=== PATIENT | male | born 1990 | race Hispanic/Latino ===

== ENCOUNTER 2017-06-30 06:44 | Inpatient (IN) | payer OTHER, SELFPAY ==
[2017-06-30] MEDS ORDERED: Fentanyl 100 MCG/2 ML VIAL ONE ×3 (06:54→09:54)
[2017-06-30 07:04] LABS: #Basophils 0.1 thou/uL (0.0-0.2); #Eosinphils 0.3 thou/uL (0.0-0.7); #Lymphocytes 4.2 thou/uL (1.20-3.40); #Monocytes 0.5 thou/uL (0.11-0.59); #Neutrophils 4.1 thou/uL (1.40-6.50); %Basophils 1.3 % (0.0-1.0); %Eosinophils 3.4 % (0.0-10.0); %Lymphocytes 45.5 % (21.0-51.0); %Monocytes 5.7 % (0.0-10.0); Hematocrit 46.9 % (42.0-52.0); Mean Platelet Volume 8.4 fL (7.4-10.4); Red Blood Cell (RBC) Count 5.11 mill/uL (4.70-6.10); White Blood Cell (WBC) Count 9.2 thou/uL (4.8-10.8)
[2017-06-30 07:12] LABS: Lactic Acid - Sepsis 6.1 mmol/L (0.5-2.2)
[2017-06-30 07:15] LABS: ALT (SGPT) 52 U/L (8-55); AST (SGOT) 64 U/L (5-34); Alkaline Phosphatase 57 U/L (40-150); Anion Gap 16 mmol/L (10-20); BUN (Urea Nitrogen) 9 mg/dL (8.9-20.6); Bilirubin, Total 0.4 mg/dL (0.2-1.2); Calc. Creatinine Clearance 0 mL/min (70-130); Calcium 8.2 mg/dL (7.8-10.44); Carbon Dioxide 20 mmol/L (22-29); Chloride 104 mmol/L (98-107); Estimated GFR-MDRD 75; Globulin 3.1 g/dL (2.4-3.5); Protein, Total 6.6 g/dL (6.0-8.3)
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
[2017-06-30] MEDS ORDERED: Ketorolac Tromethamine 30 MG/ML VIAL ONE (08:02)
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
[2017-06-30] MEDS ORDERED: Dextrose 5% in Water 1,000 ML IV PRN (08:28)
[2017-06-30] MEDS ORDERED: Zolpidem Tartrate 5 MG TAB PO PRN (08:28)
[2017-06-30] MEDS ORDERED: diphenhydrAMINE 50 MG/ML VIAL IM PRN (08:28)
[2017-06-30] MEDS ORDERED: diphenhydrAMINE 50 MG/ML VIAL IVP PRN (08:28)
[2017-06-30] MEDS ORDERED: Promethazine HCl 25 MG/ML VIAL IM PRN (08:28)
[2017-06-30] MEDS ORDERED: Ondansetron HCl/PF 4 MG/2 ML Vial IVP PRN (08:28)
[2017-06-30] MEDS ORDERED: Naloxone HCl 0.4 mg/ml Vial IV PRN (08:28)
[2017-06-30] MEDS ORDERED: HYDROmorphone 10 mg/100 ml CADD IVPB PRN (08:28)
[2017-06-30] MEDS ORDERED: Dextrose 50% Abboject 50 ML SYRINGE SLOW IVP PRN (08:28)
[2017-06-30] MEDS ORDERED: diphenhydrAMINE 25 MG CAP PO PRN (08:28)
[2017-06-30] MEDS ORDERED: Communication Order-Pharmacy FS SCH (08:30)
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
[2017-06-30 08:39] VITALS: BMI 45.7
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
[2017-06-30] MEDS: Sodium Chloride 0.9% 1,000 ML IV SCH ×2 (09:02→16:06)
[2017-06-30] MEDS: Famotidine/PF 20 mg/2ml Vial SLOW IVP SCH ×2 (09:02→20:31)
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
[2017-06-30 09:17] LABS: Hematocrit 44.1 % (42.0-52.0)
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
[2017-06-30] MEDS: Ketorolac Tromethamine 30 MG/ML VIAL IVP SCH ×2 (12:50→17:32)
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
[2017-06-30 14:26] LABS: Hematocrit 40.3 % (42.0-52.0)
[2017-06-30] MEDS ORDERED: ISOVUE-370 76%-LOCM 1 ML ONE (15:01)
[2017-06-30] MEDS ORDERED: Iopamidol 370 76% 50 ML VIAL FS ONE (15:26)
[2017-06-30 18:23] LABS: Bilirubin Moderate (Negative); Blood, Urine Large (Negative); Glucose, Urine (Dipstick) 100 mg/dL (Negative); Ketone, Urine Trace mg/dL (Negative); Nitrite Negative (Negative); Protein, Urine (Dipstick) 100 mg/dL (Neg-Trace)
[2017-06-30 18:26] LABS: Bacteria/HPF None Seen HPF (None Seen); RBC/HPF GREATER THAN 50-TNTC HPF (0-3); Squamous Epithelial 0-3 HPF (0-3)
[2017-06-30 18:49] LABS: Hyaline Casts/LPF NONE SEEN LPF (0-3 Hyaline)
[2017-06-30 18:50] LABS: Renal Epithelial None Seen HPF (0-3); Transitional Epithelial NONE SEEN HPF (0-3)
[2017-06-30 20:38] LABS: Hematocrit 36.3 % (42.0-52.0)
[2017-06-30] MEDS ORDERED: FLU VACC QS2017-18 36 mo. & older 0.5 ML SYRINGE IM ONE (21:00)
[2017-07-01] MEDS: Ketorolac Tromethamine 30 MG/ML VIAL IVP SCH ×2 (00:15→06:08)
[2017-07-01] MEDS: Insulin Regular 300 UNITS/3 ML VIAL SC PRN ×2 (01:36→06:10)
[2017-07-01 04:24] LABS: #Eosinphils 0.1 thou/uL (0.0-0.7); #Lymphocytes 1.7 thou/uL (1.20-3.40); #Monocytes 1.5 thou/uL (0.11-0.59); #Neutrophils 12.4 thou/uL (1.40-6.50); %Eosinophils 0.5 % (0.0-10.0); %Lymphocytes 10.8 % (21.0-51.0); %Monocytes 9.6 % (0.0-10.0); Hematocrit 32.8 % (42.0-52.0); Mean Platelet Volume 8.1 fL (7.4-10.4); Red Blood Cell (RBC) Count 3.69 mill/uL (4.70-6.10); White Blood Cell (WBC) Count 15.7 thou/uL (4.8-10.8)
[2017-07-01 04:29] LABS: Anion Gap 11 mmol/L (10-20); BUN (Urea Nitrogen) 20 mg/dL (8.9-20.6); Calc. Creatinine Clearance 171 mL/min (70-130); Calcium 8.1 mg/dL (7.8-10.44); Carbon Dioxide 22 mmol/L (22-29); Chloride 109 mmol/L (98-107); Estimated GFR-MDRD 67
[2017-07-01] MEDS: Sodium Chloride 0.9% 1,000 ML IV SCH ×4 (05:36→23:58)
[2017-07-01] MEDS ORDERED: HYDROcodone/Acetaminophen 7.5/325 mg Tablet PO PRN (09:03)
--- NOTE | 2017-07-01 09:05 | RAD ---
CHEST ONE VIEW: History: Pneumothorax. Chest tube. Follow up. Comparison: 07-01-17 FINDINGS: Cardiac silhouette is magnified by projection. Pulmonary vasculature remains upper limits of normal. Mediastinum is midline. Left thoracostomy tube is unchanged in position. Small left pneumothorax an d left chest wall gas are similar in appearance to the previous exam. survey research manager leads overlie the chest. IMPRESSION: Stable post-traumatic appearance of the chest. POS: [facility]
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
[2017-07-01] MEDS ORDERED: Acetaminophen 500 MG TAB PO PRN (09:08)
[2017-07-01] MEDS ORDERED: Cyclobenzaprine 10 MG TAB PO PRN (09:15)
[2017-07-01] MEDS ORDERED: Rib Fracture Protocol PO PRN (09:15)
[2017-07-01] MEDS: HYDROcodone/Acetaminophen 7.5/325 mg Tablet PO PRN ×2 (09:30→14:45)
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
[2017-07-01] MEDS: traMADol HCl 50 MG TAB PO SCH ×3 (13:10→23:52)
[2017-07-01] MEDS: Ibuprofen 800 MG TAB PO SCH ×3 (13:11→23:53)
[2017-07-01] MEDS: Gabapentin 300 MG CAP PO SCH ×2 (14:46→20:59)
[2017-07-01 15:17] LABS: Hematocrit 30.8 % (42.0-52.0)
[2017-07-01] MEDS: Famotidine 20 MG TAB PO SCH (20:58)
[2017-07-01 21:00] LABS: Hematocrit 27.9 % (42.0-52.0)
[2017-07-02 05:14] LABS: #Eosinphils 0.2 thou/uL (0.0-0.7); #Lymphocytes 1.1 thou/uL (1.20-3.40); #Monocytes 1.3 thou/uL (0.11-0.59); #Neutrophils 13.8 thou/uL (1.40-6.50); %Eosinophils 1.4 % (0.0-10.0); %Lymphocytes 6.8 % (21.0-51.0); %Monocytes 7.7 % (0.0-10.0); Hematocrit 27.2 % (42.0-52.0); Mean Platelet Volume 8.9 fL (7.4-10.4); Red Blood Cell (RBC) Count 3.03 mill/uL (4.70-6.10); White Blood Cell (WBC) Count 16.4 thou/uL (4.8-10.8)
[2017-07-02 05:22] LABS: Anion Gap 7 mmol/L (10-20); BUN (Urea Nitrogen) 9 mg/dL (8.9-20.6); Calc. Creatinine Clearance 287 mL/min (70-130); Calcium 8.4 mg/dL (7.8-10.44); Carbon Dioxide 26 mmol/L (22-29); Chloride 105 mmol/L (98-107); Estimated GFR-MDRD Greater than 90; Magnesium 1.8 mg/dL (1.6-2.6); Phosphorus 2.2 mg/dL (2.3-4.7)
[2017-07-02] MEDS: Ibuprofen 800 MG TAB PO SCH ×4 (06:03→23:34)
[2017-07-02] MEDS: traMADol HCl 50 MG TAB PO SCH ×4 (06:03→23:34)
[2017-07-02] MEDS: Famotidine 20 MG TAB PO SCH ×2 (07:54→20:52)
[2017-07-02] MEDS: Gabapentin 300 MG CAP PO SCH ×3 (07:54→20:52)
[2017-07-02] MEDS ORDERED: Sodium Phosphate 20 MMOL, Magnesium Sulfate 4 GM in Sodium Chloride 0.9% 250 ML 250 ML IVPB SCH (08:15)
--- NOTE | 2017-07-02 10:02 | RAD ---
PORTABLE AP CHEST: Date: 07-02-17 History: Left sided pneumothorax with thoracostomy tube in place. Comparison: 07-01-17 FINDINGS: Left sided thoracotomy tube is again noted in place. However, the most proximal sidehole of the thor acotomy tube does overlie the subcutaneous soft tissues lateral left chest. There is a small left si ded pneumothorax again seen which is overall unchanged. Subcutaneous emphysema about the left chest is also again present. There is atelectasis at the right lung base. Cardiac silhouette and bronchova scular markings are accentuated by the shallow depth of inspiration. There is asymmetric increased p arenchymal opacity in the left lung compared to the right which may be related to pulmonary contusio ns, aspiration, or developing pneumonia. Multiple left sided rib fractures are again seen. Right elaine g remains clear aside from mild volume loss at the right lung base. No other interval change. IMPRESSION: 1. Left sided thoracostomy tube remains in place, but the most proximal sidehole overlies the subcut aneous soft tissues. There is a persistent small left sided pneumothorax, unchanged in size compared to the prior exam. 2. Interval increase in parenchymal opacities throughout the left lung which may be related to areas of pulmonary contusion and associated atelectasis. Developing pneumonia or aspiration is a possibil ity. 3. Multiple left sided rib fractures with subcutaneous emphysema. POS: [facility]
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
[2017-07-02] MEDS: HYDROcodone/Acetaminophen 7.5/325 mg Tablet PO PRN (16:10)
[2017-07-02] MEDS: Senokot S 8.6-50 MG TAB PO SCH (20:52)
[2017-07-02] MEDS: Bacitracin Zinc Ointment 30 gm TUBE TOP SCH (20:53)
[2017-07-03] MEDS: Ibuprofen 800 MG TAB PO SCH ×4 (05:46→23:54)
[2017-07-03] MEDS: traMADol HCl 50 MG TAB PO SCH ×4 (05:47→23:54)
[2017-07-03 06:40] LABS: #Eosinphils 0.2 thou/uL (0.0-0.7); #Lymphocytes 0.8 thou/uL (1.20-3.40); #Monocytes 1.3 thou/uL (0.11-0.59); %Basophils 0.2 % (0.0-1.0); %Eosinophils 1.4 % (0.0-10.0); %Lymphocytes 4.8 % (21.0-51.0); %Monocytes 7.8 % (0.0-10.0); Hematocrit 27.1 % (42.0-52.0); Mean Platelet Volume 8.8 fL (7.4-10.4); Red Blood Cell (RBC) Count 2.93 mill/uL (4.70-6.10); White Blood Cell (WBC) Count 16.3 thou/uL (4.8-10.8)
[2017-07-03 06:54] LABS: Anion Gap 8 mmol/L (10-20); BUN (Urea Nitrogen) 7 mg/dL (8.9-20.6); Calc. Creatinine Clearance 326 mL/min (70-130); Calcium 8.5 mg/dL (7.8-10.44); Carbon Dioxide 29 mmol/L (22-29); Chloride 101 mmol/L (98-107); Estimated GFR-MDRD Greater than 90; Magnesium 2.2 mg/dL (1.6-2.6); Phosphorus 3.1 mg/dL (2.3-4.7)
[2017-07-03] MEDS: Gabapentin 300 MG CAP PO SCH ×3 (09:02→20:09)
[2017-07-03] MEDS: Senokot S 8.6-50 MG TAB PO SCH ×2 (09:02→20:09)
[2017-07-03] MEDS: Polyethylene Glycol 3350 17 GM Packet PO SCH (09:02)
[2017-07-03] MEDS: Bacitracin Zinc Ointment 30 gm TUBE TOP SCH ×2 (09:02→20:14)
[2017-07-04] MEDS: traMADol HCl 50 MG TAB PO SCH ×4 (05:53→23:50)
[2017-07-04] MEDS: Ibuprofen 800 MG TAB PO SCH ×4 (05:53→23:50)
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
--- NOTE | 2017-07-04 08:41 | RAD ---
1 VIEW CHEST: Date: 07/04/17 COMPARISON: 07/02/17. HISTORY: Chest tube. Pneumothorax. COMPARISON: 07/02/17. FINDINGS: Left-sided chest tube is redemonstrated. The side hole is external to the pleural cavity. Advancemen t and repositioning is recommended. Stable subcutaneous emphysema left hemithorax. A small left apic al pneumothorax is suggested. Stable opacification of the lung parenchyma. IMPRESSION: Left-sided chest tube as above. Repositioning and advancement recommended. CODE T. POS: [facility]
[2017-07-04] MEDS ORDERED: Magnesium Citrate 300 ML BOT PO SCH (09:45)
[2017-07-04] MEDS: Gabapentin 300 MG CAP PO SCH ×3 (10:36→20:27)
[2017-07-04] MEDS: Senokot S 8.6-50 MG TAB PO SCH ×2 (10:37→20:27)
[2017-07-04] MEDS: Polyethylene Glycol 3350 17 GM Packet PO SCH (10:37)
[2017-07-04] MEDS: Bacitracin Zinc Ointment 30 gm TUBE TOP SCH ×2 (10:37→20:28)
[2017-07-04] MEDS ORDERED: Bisacodyl 10 MG SUPP PR SCH (13:45)
[2017-07-04] MEDS: Famotidine/PF 20 mg/2ml Vial SLOW IVP SCH (15:41)
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
[2017-07-05] MEDS: traMADol HCl 50 MG TAB PO SCH ×3 (06:04→17:26)
[2017-07-05] MEDS: Ibuprofen 800 MG TAB PO SCH ×3 (06:05→17:26)
[2017-07-05] MEDS: Senokot S 8.6-50 MG TAB PO SCH ×2 (08:36→20:37)
[2017-07-05] MEDS: Gabapentin 300 MG CAP PO SCH ×3 (08:36→20:37)
[2017-07-05] MEDS: Polyethylene Glycol 3350 17 GM Packet PO SCH (08:36)
[2017-07-05] MEDS: HYDROcodone/Acetaminophen 7.5/325 mg Tablet PO PRN (08:37)
[2017-07-05] MEDS: Bacitracin Zinc Ointment 30 gm TUBE TOP SCH ×2 (08:39→21:17)
--- NOTE | 2017-07-05 08:39 | RAD ---
CHEST 1 VIEW: Date: 07/05/17 COMPARISON: 07/04/17. HISTORY: Chest tube. FINDINGS: Left-sided chest tube, unchanged in position. Persistent subcutaneous emphysema. Left rib fractures are present. Pneumothorax is not definitively appreciated. IMPRESSION: No significant change. POS: [facility]
[2017-07-05] MEDS ORDERED: Magnesium Citrate 300 ML BOT PO SCH (09:00)
--- NOTE | 2017-07-05 14:41 | RAD ---
1 VIEW CHEST: Date: 07/05/17 COMPARISON: 07/05/17. HISTORY: Chest tube removal. FINDINGS: Stable left thoracic subcutaneous emphysema. Interval removal of chest tube. Pneumothorax is not micheal reciated. Lung volumes are diminished, unchanged when compared to the prior exam. Stable left rib fr actures. IMPRESSION: Interval removal of left-sided chest tube. No pneumothorax. POS: [facility]
[2017-07-06] MEDS: Ibuprofen 800 MG TAB PO SCH ×5 (00:30→23:36)
[2017-07-06] MEDS: traMADol HCl 50 MG TAB PO SCH ×2 (00:31→06:14)
[2017-07-06] MEDS ORDERED: HYDROcodone/Acetaminophen 7.5/325 mg Tablet PO PRN (08:19)
[2017-07-06] MEDS: Senokot S 8.6-50 MG TAB PO SCH ×2 (08:48→22:06)
[2017-07-06] MEDS: Polyethylene Glycol 3350 17 GM Packet PO SCH (08:48)
[2017-07-06] MEDS: HYDROcodone/Acetaminophen 7.5/325 mg Tablet PO SCH ×4 (08:48→22:05)
[2017-07-06] MEDS: Gabapentin 300 MG CAP PO SCH ×3 (08:48→22:05)
[2017-07-06] MEDS: Enoxaparin Sodium 40 MG/0.4 ML SYRINGE SC SCH (08:49)
[2017-07-06] MEDS: Bacitracin Zinc Ointment 30 gm TUBE TOP SCH ×2 (08:49→22:05)
--- NOTE | 2017-07-06 08:53 | RAD ---
1 VIEW CHEST: Date: 07/06/17 HISTORY: Chest tube removal. Follow-up exam. COMPARISON: 07/05/17 at 1335 hours. FINDINGS: Stable subcutaneous emphysema left hemithorax. Stable opacification of the left upper lobe/left supr ahilar region, as well as stable opacification of the right lung base. Pneumothorax is not appreciat ed. IMPRESSION: No change. POS: [facility]
[2017-07-06] MEDS ORDERED: Magnesium Citrate 300 ML BOT PO SCH (18:00)
[2017-07-07] MEDS: HYDROcodone/Acetaminophen 7.5/325 mg Tablet PO SCH ×6 (01:33→20:15)
[2017-07-07] MEDS: Ibuprofen 800 MG TAB PO SCH ×3 (06:43→18:20)
[2017-07-07] MEDS: Polyethylene Glycol 3350 17 GM Packet PO SCH (07:55)
[2017-07-07] MEDS: Senokot S 8.6-50 MG TAB PO SCH ×2 (07:56→20:16)
[2017-07-07] MEDS: Gabapentin 300 MG CAP PO SCH ×3 (07:56→20:15)
[2017-07-07] MEDS: Enoxaparin Sodium 40 MG/0.4 ML SYRINGE SC SCH (07:57)
[2017-07-07] MEDS: Bacitracin Zinc Ointment 30 gm TUBE TOP SCH ×2 (07:58→20:16)
[2017-07-07] MEDS: Piperacillin/Tazobactam 4.5 GM, Admixture Fee 1 EACH in Sodium Chloride 0.9% 100 ML IVPB SCH ×3 (11:21→21:38)
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
[2017-07-08] MEDS: HYDROcodone/Acetaminophen 7.5/325 mg Tablet PO SCH ×3 (00:29→08:14)
[2017-07-08] MEDS: Ibuprofen 800 MG TAB PO SCH ×5 (00:29→23:35)
[2017-07-08] MEDS: Piperacillin/Tazobactam 4.5 GM, Admixture Fee 1 EACH in Sodium Chloride 0.9% 100 ML IVPB SCH (03:56)
[2017-07-08 06:05] LABS: Band 1 % (5-11); Hematocrit 30.4 % (42.0-52.0); Mean Platelet Volume 6.9 fL (7.4-10.4); Metamyelocyte 4 % (0-0); Myelocyte 6 % (0-0); Neutrophil 52 % (42-75); Red Blood Cell (RBC) Count 3.28 mill/uL (4.70-6.10); White Blood Cell (WBC) Count 15.2 thou/uL (4.8-10.8)
[2017-07-08] MEDS: Bacitracin Zinc Ointment 30 gm TUBE TOP SCH ×2 (08:07→20:33)
[2017-07-08] MEDS: Gabapentin 300 MG CAP PO SCH ×3 (08:07→20:33)
[2017-07-08] MEDS: Enoxaparin Sodium 40 MG/0.4 ML SYRINGE SC SCH (08:07)
[2017-07-08] MEDS: Senokot S 8.6-50 MG TAB PO SCH ×2 (08:09→20:33)
[2017-07-08] MEDS: Polyethylene Glycol 3350 17 GM Packet PO SCH (08:10)
[2017-07-08] MEDS ORDERED: Haemoph B Posysac Conj-Meng 0.5 ML VIAL IM ONE (08:30)
[2017-07-08] MEDS ORDERED: traMADol HCl 50 MG TAB PO PRN ×2 (08:57)
[2017-07-08] MEDS ORDERED: Clindamycin 150 MG CAP PO SCH (09:00)
--- NOTE | 2017-07-08 09:37 | RAD ---
CHEST ONE VIEW: History: Follow up opacification. Comparison: 07-06-17 FINDINGS: The subcutaneous emphysema along the left lateral hemithorax is similar to slightly worsening. There is a left lower lobe and lingular air space opacity, progressive. Multiple left sided rib fractures . There is a tiny left apical pneumothorax. IMPRESSION: 1. Worsening left lower lobe lingular opacities suggesting progression of evolving pulmonary contusi on. 2. Increase in subcutaneous emphysema. 3. Left anterior pneumothorax. POS: [facility]
[2017-07-08] MEDS: Saccharomyces boulardii 250 MG CAP PO SCH (09:55)
[2017-07-08] MEDS: Acetaminophen 500 MG TAB PO SCH ×3 (10:33→20:32)
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
[2017-07-08] MEDS: Clindamycin 150 MG CAP PO SCH ×2 (14:45→21:35)
[2017-07-09] MEDS: Acetaminophen 500 MG TAB PO SCH ×3 (02:57→15:09)
[2017-07-09] MEDS: Clindamycin 150 MG CAP PO SCH ×2 (05:27→14:19)
[2017-07-09] MEDS: Ibuprofen 800 MG TAB PO SCH ×2 (05:27→14:10)
[2017-07-09] MEDS: Saccharomyces boulardii 250 MG CAP PO SCH (09:30)
[2017-07-09] MEDS: Gabapentin 300 MG CAP PO SCH ×2 (09:31→14:10)
[2017-07-09] MEDS: Enoxaparin Sodium 40 MG/0.4 ML SYRINGE SC SCH (09:31)
[2017-07-09] MEDS: Senokot S 8.6-50 MG TAB PO SCH (09:31)
[2017-07-09] MEDS: Polyethylene Glycol 3350 17 GM Packet PO SCH (09:32)
[2017-07-09] MEDS: Bacitracin Zinc Ointment 30 gm TUBE TOP SCH (09:33)
[2017-07-09] MEDS ORDERED: Prevnar 13-Val Conj/PF 0.5 ML SYRINGE IM ONE (11:00)
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
[2017-07-09 13:04] VITALS: BP 134/83; TEMP 98.6
== END 2017-07-09 15:00 | disposition home or self-care (01) | DRG 963 ==
LOC: ERS 06:44 → CCU 08:10 → SJJU 07-02 18:35
PROVIDERS: ADMIT Surgery; ATTEND Surgery
PROC: 04JY3ZZ Inspection of Lower Artery, Percutaneous Approach (ICD-10-PCS; principal; 2017-06-30)
PROC: B41J1ZZ Fluoroscopy of Other Lower Arteries using Low Osmolar Contrast (ICD-10-PCS; 2017-06-30)
PROC: 0W9B00Z Drainage of Left Pleural Cavity with Drainage Device, Open Approach (ICD-10-PCS; 2017-06-30)
PROC: B4101ZZ Fluoroscopy of Abdominal Aorta using Low Osmolar Contrast (ICD-10-PCS; 2017-06-30)
DX: S06.379A Contusion, laceration, and hemorrhage of cerebellum with loss of consciousness of unspecified duration, initial encounter (principal); S27.2XXA Traumatic hemopneumothorax, initial encounter; J18.9 Pneumonia, unspecified organism; S36.032A Major laceration of spleen, initial encounter; I95.9 Hypotension, unspecified; S36.899A Unspecified injury of other intra-abdominal organs, initial encounter; S22.42XA Multiple fractures of ribs, left side, initial encounter for closed fracture; D62 Acute posthemorrhagic anemia; Z68.42 Body mass index [BMI] 45.0-49.9, adult; J98.11 Atelectasis; E66.01 Morbid (severe) obesity due to excess calories; F17.210 Nicotine dependence, cigarettes, uncomplicated; R40.2410 Glasgow coma scale score 13-15, unspecified time; V20.4XXA Motorcycle driver injured in collision with pedestrian or animal in traffic accident, initial encounter; Y92.9 Unspecified place or not applicable; E83.42 Hypomagnesemia; E83.39 Other disorders of phosphorus metabolism
CPT/HCPCS: 32551; 36246; 36415; 36416; 70450; 71010; 71260; 72125; 72170; 74177; 75625; 75726; 80048; 80053; 81001; 83605; 83735; 84100; 85007; 85014; 85018; 85025; 85027; 86850; 86900; 86901; 87070; 87077; 87186; 87205; 89220; 90471; 90647; 90670; 90682; 94640; 94667; 94760; 94799; 96361; 96374; 96375; 96376; 99292; C1725; C1769; G0008; G0009; G0390; G8978-GP-CN; G8979-GP-CJ; G8987-GO-CL; G8988-GO-CI; J1644; J1650; J1885; J2405; J2543; J3010; J3475; J7050; J7620; Q2036; S0028